=== PATIENT | female | born 1990 | race Two or more races ===

== ENCOUNTER → 2025-09-12 09:21 | Outpatient (CLI) | payer OTHER | END | disposition home or self-care (01) | LOC: PRENATAL 09:21 | PROVIDERS: ATTEND Obstetrics & Gynecology Maternal & Fetal Medicine | DX: O36.80X0 Pregnancy with inconclusive fetal viability, not applicable or unspecified (principal); Z36.82 Encounter for antenatal screening for nuchal translucency; Z14.8 Genetic carrier of other disease; O09.511 Supervision of elderly primigravida, first trimester; O34.11 Maternal care for benign tumor of corpus uteri, first trimester; Z3A.13 13 weeks gestation of pregnancy ==